=== PATIENT | male | born 1945 | race Caucasian/White ===

== ENCOUNTER 2022-01-23 11:35 | Emergency (ER) | payer MEDICARE, OTHER ==
[~2022-01-23 11:35] MED LIST: ACID CONTROL150 MG PO; AMIODARONE HCL200 MG PO; CARAFATE1 GM PO; DIGITEK125 MCG PO; LISINOPRIL-HCT1 EACH PO; LOPRESSOR25 MG PO; LOPRESSOR50 MG PO; TYLENOL PM EX-1 EACH PO; XARELTO10 MG PO; XARELTO15 MG PO
[2022-01-23 12:12] LABS: BASOPHIL 0.9 % (0-2); EOSINOPHIL 2.2 % (0-7); HCT 43.7 % (42.0-52.0); HGB 14.3 g/dl (13.2-18.0); LYMPHOCYTE 28.5 % (15-48); MCH 29.7 pg (25.0-31.0); MCHC 32.7 g/dL (32.0-36.0); MCV 90.7 fL (78.0-100.0); MONOCYTE 10.2 % (0-12); MPV 8.9 fL (6.0-9.5); NEUTROPHIL 57.7 % (41-80); NRBC 0; PLT 262 K/uL (150-400); RBC 4.82 M/uL (4.70-6.00); RDW 13.8 % (11.5-14.0); WBC 8.6 K/uL (4.0-10.5)
[2022-01-23 12:16] LABS: INR 1.04 (0.9-1.2); PTT 29.2 SECONDS (24.4-34.7)
[2022-01-23 12:27] LABS: ALBUMIN 3.8 g/dL (3.4-5.0); BILIRUBIN - TOTAL 0.5 mg/dL (0.2-1.0); BUN/CREAT RATIO (CALC) 26.5 RATIO; CREATININE 1.13 mg/dL (0.67-1.17); GLOBULIN (CALCULATION) 4.6 g/dL; POTASSIUM 4.8 mmol/L (3.5-5.1); TOTAL PROTEIN 8.4 g/dL (6.4-8.2)
[2022-01-23 12:29] LABS: CKMB 2.3 ng/mL (0.0-3.6)
== END 2022-01-23 14:20 | disposition other institution (70) ==
LOC: FER 11:35
PROVIDERS: Emergency Medicine
DX: I21.4 Non-ST elevation (NSTEMI) myocardial infarction (principal); I48.91 Unspecified atrial fibrillation; E11.9 Type 2 diabetes mellitus without complications; Z20.822 Contact with and (suspected) exposure to COVID-19
CPT/HCPCS: 36415; 71045; 80053; 82553; 83880; 84484; 85025; 85610; 85730; 93005; J7040; U0002